=== PATIENT | female | born 1930 | race Caucasian/White ===

== ENCOUNTER → 2018-07-02 | Outpatient (CLI) | payer MEDICARE, OTHER ==
[~2018-07-02] MED LIST: ASPI-1471 PO; ASPI-715 PO; BIOT5TAB2 PO; BIOT800T4 PO; CALC500T76 PO; CALC600T63 PO; CART1TAB4 PO; CHOL200074 PO; DABI150C3 PO; DABI75CA3 PO; DIG125 PO; DILSR120 PO; DILT-106 PO; DILT-145 PO; ESTR42.59 VG; FAMO-67 PO; FISH OIL1 CAP PO; GLUC-129 PO; HYDR-3083 PO; LACT1CAP6 PO; LOR5/325 PO; LUTE1CAP4 PO; METO-259 PO; MILK175T2 PO; MOXOD OD; MULT1CAP41 PO; OXYGENHOME INH; PREOD OD; RIVA20TA PO; TRIA15CR40 TP; UBID50CA21 PO; VIT D; WAR5 PO; [UNRECOGNIZED DRUG - CODE] OU; [UNRECOGNIZED DRUG - OTHER]
== END ==
LOC: LAB 15:20
PROVIDERS: ATTEND Nurse Practitioner
DX: D22.9 Melanocytic nevi, unspecified (principal)
CPT/HCPCS: 88305

== ENCOUNTER → 2018-08-19 | Outpatient (CLI) | payer MEDICARE, OTHER | LOC: LAB 14:42 | PROVIDERS: ATTEND Surgery | DX: L90.5 Scar conditions and fibrosis of skin (principal) | CPT/HCPCS: 88305; 88344 ==